=== PATIENT | female | born 1950 | race Caucasian/White ===

== ENCOUNTER → 2021-07-19 | Outpatient (CLI) | payer OTHER, MEDICARE ==
[~2021-07-19] MED LIST: ASTAXANTHIN4 MG PO; CALTRATE-600 W1 EACH PO; CENTRUM SILVER1 EAC4 PO; KRILL OIL500 MG PO; MANNOSE50 GM PO; PROBIOTIC1 EAC1 PO; VITAMIN D1000 UNI1 PO; [UNRECOGNIZED DRUG - OTHER] MC
== END ==
LOC: ULTRA 09:30
PROVIDERS: ATTEND Internal Medicine Hematology & Oncology
DX: R16.1 Splenomegaly, not elsewhere classified (principal); D47.3 Essential (hemorrhagic) thrombocythemia; R53.83 Other fatigue; R63.0 Anorexia